=== PATIENT | female | born 2005 | race Caucasian/White ===

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

== ENCOUNTER → 2024-02-20 14:02 | Outpatient (BNVA) | payer MEDICAID, SELFPAY | PROVIDERS: PCP Registered Nurse; Visit Provider Registered Nurse | DX: R10.9 Unspecified abdominal pain (principal) | CPT/HCPCS: 81000 ==

== ENCOUNTER 2024-08-27 22:50 | Inpatient (IN) | payer OTHER, SELFPAY ==
[2024-08-27] VITALS (10 sets, daily range): BP systolic 112–140; BP diastolic 66–88; PULSE 81–106; RESP 16; BMI 30.7
[2024-08-27 22:14] LABS: Basophils % 0.2 %; Eosinophils # 0.1 10^3/uL (0.0-0.8); Eosinophils % 0.4 %; Hematocrit 40.6 % (36-47); Lymphocytes # 2.6 10^3/uL (0.8-4.8); Mean Corpuscular HGB Conc 33.3 g/dL (30-55); Mean Corpuscular Hemoglobin 30.6 pg (27-33); Mean Corpuscular Volume 92.1 fl (85-98); Mean Platelet Volume 11.7 fL (7.4-10.4); Monocytes # 1.6 10^3/uL (0.2-0.9); Monocytes % 13.2 %; Neutrophils # 8.07 10^3/uL (1.8-7.7); Neutrophils % 64.7 %; Nucleated Red Blood Cells % 0 %; Platelet Count 170 10^3/cmm (157-399); Red Blood Count 4.41 10^6/uL (3.85-5.65); Red Cell Distribution Width 12.3 % (12.1-15.1); White Blood Count 12.45 10^3/uL (3.29-11.43)
--- NOTE | 2024-08-27 22:19 | PM.OPHPUD ---
Labor & Delivery H&P Update Date of Procedure: August 27, 2024 Date H&P Performed: 08/26/24 Changes to previous documentation: The patient arrived to the hospital in active labor with a cervix dilated to 7 cm Admission Diagnosis: 19-year-old 3 para 1-0-1-1 at 40 weeks estimated gestational age presenting in active labor. Planned procedure: Spontaneous vaginal delivery Other information: The patient is a female whose due date is 08/23/2024 who presented to the hospital today in active labor. Her membranes are intact. She began having contractions several hours before arriving at the hospital. She had inconsistent care due to not showing up for multiple appointments and they late second tenderly third trimester.. Her blood type was O+. Her antibody screen was negative. She declined glucose screen. She is rubella immune. She is GBS negative. The remainder of her infectious disease profile was within normal limits. She did decline a GC and chlamydia as well. Related Problem List Diagnoses (1) 40 weeks gestation of : A&P Assessment and plan (1) 40 weeks gestation of : I anticipate routine vaginal delivery. The patient really desires a minimalistic approach to her care. We have discussed the risks associated with this approach and she understands those. Status: Acute PDMP PDMP Reviewed: Not Reviewed
[2024-08-27] MEDS: sodium chloride 0.9% 1,000 ML 500 ML IV (22:58)
--- NOTE | 2024-08-27 23:10 | PM.DELIVERY ---
Delivery Note: Date of delivery: August 27, 2024 Pre-delivery diagnoses: 19-year-old 3 para 1-0-1-1 at 40 weeks estimated gestational age presenting in active labor Post-delivery diagnoses: Status post spontaneous vaginal delivery Procedure: Spontaneous vaginal delivery Delivering Physician: Cooper Vaughn Estimated blood loss (mL): 50 Pre-Delivery Course: The patient presented to the hospital in active labor. She was found to be 7 cm dilated. An amniotomy was performed shortly after arrival to the hospital. She progressed to complete without difficulty. Delivery: DELIVERY: The patient progressed to complete without difficulty. She delivered a female with a weight of 6 pounds 2 ounces with Apgars of 8, 8. The baby was delivered from the STEWART position and placed on the mother's abdomen. The cord was then clamped and cut approximately 1 minute after delivery. There was no nuchal cord. There was no meconium. The placenta and 3 vessel cord were delivered intact shortly thereafter. The perineum and vaginal vault were carefully examined. No lacerations were noted. Both the mother and the baby were in stable condition. We discussed the rationale behind why we give Pitocin routinely postdelivery. Despite the discussion, she elected to not to have Pitocin unless she had excessive bleeding. Post-Delivery Status: Good A&P Assessment and plan (1) Spontaneous vaginal delivery: I anticipate routine care. (2) 40 weeks gestation of : PDMP PDMP Reviewed: Not Reviewed Coding Level of Care Code Acute Code for Chg Fwd Diagnoses Spontaneous vaginal delivery O80 40 weeks gestation of Z3A.40
[2024-08-28] VITALS (12 sets, daily range): BP systolic 106–136; BP diastolic 61–78; PULSE 71–98; RESP 16–18; TEMP 36.7–37; O2SAT 99
[2024-08-28 01:11] LABS: Amphetamines Screen Urine Negative (Negative); Barbiturates Screen Urine Negative (Negative); Benzodiazepines Screen Urine Negative (Negative); Cocaine Screen Urine Negative (Negative); Opiate Screen Urine Negative (Negative); PCP Screen Urine Negative (Negative); THC Screen Urine Negative (Negative)
[2024-08-28 11:35] LABS: Hematocrit 37.8 % (36-47); Mean Corpuscular HGB Conc 32.8 g/dL (30-55); Mean Corpuscular Hemoglobin 30.6 pg (27-33); Mean Corpuscular Volume 93.3 fl (85-98); Mean Platelet Volume 11.3 fL (7.4-10.4); Platelet Count 163 10^3/cmm (157-399); Red Blood Count 4.05 10^6/uL (3.85-5.65); Red Cell Distribution Width 12.4 % (12.1-15.1); White Blood Count 13.89 10^3/uL (3.29-11.43)
[2024-08-29 04:24] VITALS: BP 100/64; PULSE 47; RESP 16; TEMP 36.9; O2SAT 98
[2024-08-29 08:00] VITALS: BP 109/66; PULSE 70; RESP 18; TEMP 36.8
--- NOTE | 2024-08-29 08:19 | PM.OBGYPN ---
HOUSEKEEPING DIRECTOR Subjective Subjective: Interval history: This note corresponds to evaluation and examination performed on 08/28/2024 The patient is doing very well. Her pain is well-controlled. Her bleeding is minimal. She is breast-feeding well. She has no concerns. Labor: Station: 0 Amniotic Membrane Status: Ruptured Monitor Mode: External Contraction Pattern: Irregular Vitals/I&O/Wt Last Vital Signs Temp 98.2 F 08/29/24 08:00 Pulse 70 08/29/24 08:00 Resp 18 08/29/24 08:00 BP 109/66 08/29/24 08:00 Pulse Ox 98 08/29/24 04:24 O2 Del Method Room Air 08/29/24 04:24 Weight last 48 hrs Weight 185 lb Physical Exam Narrative: The patient is alert. She appears comfortable. Her heart has a regular rate and rhythm with no murmurs appreciated. Lungs are clear to auscultation bilaterally. Her fundus is firm and below the umbilicus. Data 08/28/24 11:25 A&P Assessment and plan (1) Spontaneous vaginal delivery: I anticipate routine care (2) 40 weeks gestation of : PDMP PDMP Reviewed: Not Reviewed Attestations Medical Necessity Statement*: Routine care Coding Level of Care Code Acute Code for Chg Fwd Diagnoses Spontaneous vaginal delivery O80 40 weeks gestation of Z3A.40
--- NOTE | 2024-08-29 08:20 | PM.OBGYDC ---
Discharge Providers SEMICONDUCTOR WAFERS ETCHER STRIPPER Date of Admission: 08/27/24 22:50 Date of Discharge: 08/29/24 Attending Provider at Admission: Cooper Vaughn MD Attending Provider at Discharge: Cooper Vaughn MD Primary Care Provider: WALKER Sims Diagnoses at Discharge Discharge Diagnosis (1) Spontaneous vaginal delivery: Status: Acute (2) 40 weeks gestation of : Status: Acute Reason for Visit Reason for Visit: CTX Hospital Course Hospital Course The patient presented to the hospital in active labor. An amniotomy was performed. She progressed to complete and had an unremarkable delivery of a healthy appearing female infant. Her course has been unremarkable. Her bleeding has been within normal limits. She has breast-fed well. Her pain is been well-controlled. Information Peripartum Data: Infant Delivery Method: Vaginal Physical Exam Narrative: The patient is alert. She appears comfortable. Her heart has a regular rate and rhythm with no murmurs appreciated. Lungs are clear to auscultation bilaterally. Her fundus is firm and below the umbilicus. Discharge Data Studies Completed and Pending Laboratory Results WBC 13.89 10^3/uL (3.29-11.43) H 08/28/24 11:25 RBC 4.05 10^6/uL (3.85-5.65) 08/28/24 11:25 Hgb 12.40 g/dL (11.27-16.99) 08/28/24 11:25 Hct 37.8 % (36-47) 08/28/24 11:25 MCV 93.3 fl (85-98) 08/28/24 11:25 MCH 30.6 pg (27-33) 08/28/24 11:25 MCHC 32.8 g/dL (30-55) 08/28/24 11:25 RDW 12.4 % (12.1-15.1) 08/28/24 11:25 Plt Count 163 10^3/cmm (157-399) 08/28/24 11:25 MPV 11.3 fL (7.4-10.4) H 08/28/24 11:25 Neut % (Auto) 64.7 % 08/27/24 21:55 Lymph % (Auto) 21.0 % 08/27/24 21:55 [place] % (Auto) 13.2 % 08/27/24 21:55 Eos % (Auto) 0.4 % 08/27/24 21:55 Baso % (Auto) 0.2 % 08/27/24 21:55 Neut # (Auto) 8.07 10^3/uL (1.8-7.7) H 08/27/24 21:55 Lymph # (Auto) 2.6 10^3/uL (0.8-4.8) 08/27/24 21:55 [place] # (Auto) 1.6 10^3/uL (0.2-0.9) H 08/27/24 21:55 Eos # (Auto) 0.1 10^3/uL (0.0-0.8) 08/27/24 21:55 Baso # (Auto) 0.0 10^3/uL (0.0-0.1) 08/27/24 21:55 Nucleated RBC % (auto) 0 % 08/27/24 21:55 Nucleated RBCs # 0.0 /100WBC 08/27/24 21:55 Urine Opiates Screen Negative ng/mL (Negative) 08/27/24 22:20 Ur Barbiturates Screen Negative ng/mL (Negative) 08/27/24 22:20 Ur Phencyclidine Scrn Negative ng/mL (Negative) 08/27/24 22:20 Ur Amphetamines Screen Negative ng/mL (Negative) 08/27/24 22:20 U Benzodiazepines Scrn Negative ng/mL (Negative) 08/27/24 22:20 Urine Cocaine Screen Negative ng/mL (Negative) 08/27/24 22:20 U Marijuana (THC) Screen Negative ng/mL (Negative) 08/27/24 22:20 Blood Type O Positive 08/27/24 21:55 Rho(D) Type Rh positive 08/27/24 21:55 Antibody Screen Negative 08/27/24 21:55 Vitals Last Vital Signs Temp 98.2 F 08/29/24 08:00 Pulse 70 08/29/24 08:00 Resp 18 08/29/24 08:00 BP 109/66 08/29/24 08:00 Pulse Ox 98 08/29/24 04:24 O2 Del Method Room Air 08/29/24 04:24 Results Labs OB ([facility]): Blood Type O Positive 08/27/24 Antibody Screen Negative 08/27/24 Hct, (36-47) 37.8 % 08/28/24 Hgb, (11.27-16.99) 12.40 g/dL 08/28/24 Rho(D) Type Rh positive 08/27/24 Plt Count, (157-399) 163 10^3/cmm 08/28/24 Urine Opiates Screen, (Negative) Negative ng/mL 08/27/24 Ur Barbiturates Screen, (Negative) Negative ng/mL 08/27/24 Ur Phencyclidine Scrn, (Negative) Negative ng/mL 08/27/24 Ur Amphetamines Screen, (Negative) Negative ng/mL 08/27/24 U Benzodiazepines Scrn, (Negative) Negative ng/mL 08/27/24 Urine Cocaine Screen, (Negative) Negative ng/mL 08/27/24 U Marijuana (THC) Screen, (Negative) Negative ng/mL 08/27/24 Discharge Plan Discharge Patient Disposition: Home Condition: Stable Prescriptions: New ibuprofen 800 mg Tablet 800 mg PO TID Qty: 30 0RF Continued qfjfomge-zvu-Cb-FA 1 mg Tablet 1 tab PO DAILY Discharge Orders: Discharge Order (Routine); Ordered 08/29/24 Ordered By: Cooper Vaughn Referrals: Cooper Vaughn MD [Physician, Family Practice] - 10/12/24 12:00 pm Referral Note: * Your 6 week appointment is on 10/12/2024 at 12:00pm Discharge Diet: Usual diet Discharge Activity: Resume usual activity Patient Instructions: Depression (DC), Bleeding (DC), Preeclampsia and Eclampsia After Delivery (GEN), Hemorrhage (DC), OB Discharge Report, OB Food/Drug Interaction Guide, OB Home Care Instructions, Opioid Safety, OB Home Care, OB Proud Parent Packet, OB Vaginal Deliveries Discharge Attestations SEMICONDUCTOR WAFERS ETCHER STRIPPER Time Spent in Discharge Care*: less than 30 min Coding Level of Care Code Acute Code for Chg Fwd Diagnoses Spontaneous vaginal delivery O80 40 weeks gestation of Z3A.40
== END 2024-08-29 08:55 | disposition home or self-care (01) | DRG 807 ==
LOC: OPOB 22:50 → OBGYN 22:50
PROVIDERS: Admitting Provider Family Medicine; PCP Registered Nurse; Visit Provider Family Medicine
DX: O48.0 Post-term pregnancy (principal); Z37.0 Single live birth; Z3A.40 40 weeks gestation of pregnancy
CPT/HCPCS: 36415; 59025; 59409; 80306; 85025; 85027; 86850; 86900; 99211; J7030